=== PATIENT | male | born 1980 | race Caucasian/White ===

== ENCOUNTER 2017-11-16 08:44 | Emergency (ER) | payer OTHER ==
[2017-11-16 09:09] VITALS: BP 119/83
--- NOTE | 2017-11-16 09:19 | UC ---
Abdominal Pain Male HPI - HPI Summary HPI Summary: ABDOMINAL PAIN X 4 DAYS + VOMITING ALL DAY ON MONDAY NO MORE VOMITING SINCE MONDAY BUT HAS BEEN NAUSEOUS NO FEVER, + CHILLS, NO DIARRHEA, NO DYSURIA - History of Current Complaint Chief Complaint: UCGeneralIllness Stated Complaint: VOMITING Time Seen by Provider: 11/16/17 08:58 Hx Obtained From: Patient Onset/Duration: Gradual Onset, Lasting Days - 4, Still Present Timing: Constant Severity Initially: Moderate Severity Currently: Moderate Pain Intensity: 0 Location: Diffuse Radiates: No Character: Colicy, Cramping Aggravating Factor(s): Food Alleviating Factor(s): Nothing Associated Signs And Symptoms: Positive: Decreased Appetite, Vomiting. Negative : Diaphoresis, Fever, Cough, Chest Pain, Dizzy, Back Pain, Constipation, Blood in Stool, Urinary Symptoms, Diarrhea, Penile Discharge - Allergies/Home Medications Allergies/Adverse Reactions: Allergies Allergy/AdvReac Type Severity Reaction Status Date / Time No Known Allergies Allergy Verified 11/16/17 09:02 Home Medications: Home Medications Ondansetron ODT TAB* [Zofran 4 MG Odt TAB*] 11/16/17 [History] PMH/Surg Hx/FS Hx/Imm Hx - Additional Past Medical History Additional PMH: HIRSCHPRONGS ANXIETY Psychological History: Anxiety - Surgical History Surgical History: Yes Surgery Procedure, Year, and Place: [place] - Sx as infant - larged bowel resection, - Family History Known Family History: Negative: Diabetes - Social History Alcohol Use: None Substance Use Type: Marijuana Substance Use Comment - Amount & Last Used: TODAY Smoking Status (MU): Former Smoker Have You Smoked in the Last Year: No When Did the Patient Quit Smoking/Using Tobacco: 9 YEARS AGO Review of Systems Constitutional: Negative Skin: Negative Eyes: Negative ENT: Negative Respiratory: Negative Cardiovascular: Negative Gastrointestinal: Vomiting, Nausea Is Patient Immunocompromised?: No All Other Systems Reviewed And Are Negative: Yes Physical Exam Triage Information Reviewed: Yes Appearance: Well-Appearing, No Pain Distress, Well-Nourished Vital Signs: Initial Vital Signs Temp 99.6 F 11/16/17 08:59 Pulse 96 11/16/17 08:59 Resp 16 11/16/17 08:59 BP 119/83 11/16/17 08:59 Pulse Ox 99 03/15/18 08:59 Vital Signs Reviewed: Yes Eye Exam: Normal Eyes: Positive: Conjunctiva Clear ENT: Positive: Normal ENT inspection, Hearing grossly normal, Pharynx normal Respiratory: Positive: Chest non-tender, Lungs clear, Normal breath sounds, No respiratory distress Cardiovascular: Positive: RRR, No Murmur, Pulses Normal Abdominal Exam: Normal Abdomen Description: Positive: Nontender, No Organomegaly, Soft. Negative: CVA Tenderness (R), CVA Tenderness (L), Distended, Guarding Bowel Sounds: Positive: Present Musculoskeletal Exam: Normal Neurological Exam: Normal Abd Pain Male Course/Dx - Differential Dx/Clinical Impression Provider Diagnoses: VIRAL ILLNESS Discharge - Discharge Plan Condition: Stable Disposition: HOME Prescriptions: Ondansetron [Zofran Odt] 8 mg PO Q8H PRN #9 tab.rapdis PRN Reason: Nausea/Vomiting Patient Education Materials: Acute Nausea and Vomiting (ED) Forms: *Work Release Referrals: Maida Mcclelland NP [Primary Care Provider] - If Needed
== END 2017-11-16 09:22 | disposition home or self-care (01) ==
LOC: UCCORT 08:44
DX: B34.9 Viral infection, unspecified (principal); Z87.891 Personal history of nicotine dependence
CPT/HCPCS: 99201; G0463

== ENCOUNTER 2019-08-11 11:01 | Emergency (ER) | payer OTHER ==
--- OUTSIDE RECORDS SUMMARY | 2019-08-11 11:25 | XMS REPORT | Continuity of Care Document ---
:1980 External Reference #:[id number] Demographics Address [address] [facility] [address] [place] [address] Home Phone [phone] Mobile Phone [phone] Preferred Language en Marital Status Declined to Specify/Unknown Restorationist Affiliation Unknown Race White Ethnic Group Declined to Specify/Unknown Author Name Aleksandr Olivarez MD (transmitted by agent of provider Fidelia Julian) Address [address] [place] [address] Care Team Providers Name Role Phone Luís Ledesma MD - Surgery Care Team Information Dance Historian [phone] Problems Active Problems Provider Date Functional disorder of intestine Fidelia Mary PA Onset: 12/04/2017 Malaise and fatigue Fidelia Mary PA Onset: 12/04/2017 Hyperlipidemia screening Fidelia Mary PA Onset: 12/04/2017 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 End: 09/04/08 Quit when son was born Smoking Status Reviewed: 08/03/18 Former Cigarette Smoker 2 ppd while smoking. Quit when son was born Smokeless Tobacco Never Used Smokeless Tobacco ETOH Use Denies alcohol use stopped 30 days ago. Tobacco Use Start: Unknown End: Patient is a former smokes Marijuana Unknown smoker daily Recreational Drug Use Marijuana Allergies, Adverse Reactions, Alerts Description No Known Drug Allergies Medications Active Medications SIG Qnty Indications Ordering Provider Date Dicyclomine HCL Take 1 Capsule By 90caps K82.8 Aleksandr Olivarez, 08/27/2018 10mg Mouth Three Times MD Capsules Daily as Needed Ventolin HFA 2 puffs every 4 18gm R06.02 Miriam Herrera, 07/03/2018 hours as needed 108(90Base) mcg/Act for cough and Aerosol wheeze Nexium 1 by mouth every Unknown 20mg Capsules DR day Immunizations CPT Code Status Date Vaccine Lot # [id number] Refused 07/03/2018 Influenza Virus Vaccine, Quadrivalent, 36 Mos+, .5ML Vital Signs Date Vital Result Comment 11/27/2018 9:47am BP Systolic Sitting Left Arm 104 mmHg BP Diastolic Sitting Left Arm 76 mmHg Heart Rate 99 /min Respiratory Rate 16 /min Height 72 inches 6'0" Weight 137.00 lb BMI (Body Mass Index) 18.6 kg/m2 BSA (Body Surface Area) 1.81 m2 [place] body weight in kilograms 81 kg O2 % BldC Oximetry 96 % Ra 08/03/2018 2:22pm BP Systolic Sitting Right Arm 128 mmHg BP Diastolic Sitting Right Arm 72 mmHg Body Temperature 97.8 F Heart Rate 71 /min Weight 149.38 lb O2 % BldC Oximetry 97 % Results Description No Information Available Procedures Date Code Description Status 02/12/2018 [id number] Colonoscopy Completed Medical Devices Description No Information Available Encounters Description No Information Available Assessments Description No Information Available Plan of Treatment 11/27/2018 - Aleksandr Olivarez MDK29.50 Unspecified chronic gastritis without bleedingComments:egd showed mild gastritispain is near scar sitewill get sonogrammay have to consider adhesionsFollow up:4 [id number] Alcohol dependence, in remissionComments:30 days sober Functional Status Functional Condition Comment Date Status Independent with all ADL's Active Mental Status Description No Information Available Referrals Description No Information Available
[2019-08-11 11:30] VITALS: BP 128/71
--- NOTE | 2019-08-11 11:35 | UC ---
UC General HPI - HPI Summary HPI Summary: Pt presents for a return to work note. Pt called into work on 08/06/19 for back pain and taken out of work and now needs a return to work note. Pt states he no longer has any back pain or dysfunction. He was not seen here for back pain c /o - History of Current Complaint Chief Complaint: UCBackPain Stated Complaint: RETURN TO WORK NOTE Time Seen by Provider: 08/11/19 11:26 Hx Obtained From: Patient Onset/Duration: Sudden Onset, Resolved Onset Severity: Severe Current Severity: None Pain Intensity: 0 Associated Signs & Symptoms: Positive: Other - back pain resolved - Allergy/Home Medications Allergies/Adverse Reactions: Allergies Allergy/AdvReac Type Severity Reaction Status Date / Time No Known Allergies Allergy Verified 08/11/19 11:25 Home Medications: Home Medications NK [No Home Medications Reported] 08/11/19 [History Confirmed 08/11/19] PMH/Surg Hx/FS Hx/Imm Hx Previously Healthy: Yes - Surgical History Surgical History: Yes Surgery Procedure, Year, and Place: Cholecystectomy, [facility], [place]; Bowel Resection (Hirschsprung's), 1980, [place] - Family History Known Family History: Negative: Diabetes - Social History Occupation: Employed Full-time Lives: With Family Alcohol Use: Occasionally Substance Use Type: None Substance Use Comment - Amount & Last Used: TODAY Smoking Status (MU): Former Smoker Length of Time of Smoking/Using Tobacco: 1 1/2 PPD x 13 Years Have You Smoked in the Last Year: No When Did the Patient Quit Smoking/Using Tobacco: ~2007 Review of Systems All Other Systems Reviewed And Are Negative: Yes Constitutional: Positive: Negative Skin: Positive: Negative Eyes: Positive: Negative ENT: Positive: Negative Respiratory: Positive: Negative Cardiovascular: Positive: Negative Gastrointestinal: Positive: Negative Genitourinary: Positive: Negative Motor: Positive: Negative Neurovascular: Positive: Negative Musculoskeletal: Positive: Negative Neurological: Positive: Negative Psychological: Positive: Negative Is Patient Immunocompromised?: No Physical Exam Triage Information Reviewed: Yes Appearance: Well-Appearing Vital Signs: Initial Vital Signs Temp 98 F 08/11/19 11:24 Pulse 94 08/11/19 11:24 Resp 16 08/11/19 11:24 BP 128/71 08/11/19 11:24 Pulse Ox 100 08/11/19 11:24 Vital Signs Reviewed: Yes Eye Exam: Normal ENT Exam: Normal Dental Exam: Normal Neck exam: Normal Respiratory Exam: Normal Cardiovascular Exam: Normal Abdominal Exam: Normal Musculoskeletal Exam: Normal Neurological Exam: Normal Psychological Exam: Normal Skin Exam: Normal Course/Dx - Differential Dx - Multi-Symptom Differential Diagnoses: Other - back pain resolved - Diagnoses Provider Diagnosis: Normal exam Discharge ED - Sign-Out/Discharge Documenting (check all that apply): Patient Departure All imaging exams completed and their final reports reviewed: No Studies - Discharge Plan Condition: Stable Disposition: HOME Patient Education Materials: Return to Work Instructions (ED) Forms: *Work Release Referrals: Fidelia Mary PA [Primary Care Provider] - If Needed - Billing Disposition and Condition Condition: STABLE Disposition: Home
== END 2019-08-11 11:39 | disposition home or self-care (01) ==
LOC: UCCORT 11:01
DX: Z02.79 Encounter for issue of other medical certificate (principal); Z87.891 Personal history of nicotine dependence
CPT/HCPCS: 99211; G0463